=== PATIENT | female | born 1965 | race American Indian/Alaskan Native ===

== ENCOUNTER 2018-08-08 20:12 | Emergency (ER) | payer SELFPAY ==
[2018-08-08 20:25] VITALS: BP 189/94
--- NOTE | 2018-08-08 20:46 | Emergency Department Report ---
Blank Doc - Documentation Documentation: Rash under abd Hx/o MRSA was on abx. Rash has re-appeared for 3 days. No fev ers. This initial assessment diagnostic orders/clinical plan/treatment (s) is/Are subject change based on patient's health status, clinical progression and re- assessment by fellow clinical providers in the ED. Further treatment and work-up at subsequent clinical providers discretion. Patient/guardians urged not to elope from s their condition may be serious if not clinically assessed and managed. Inital order include:
--- NOTE | 2018-08-09 01:50 | Emergency Department Report ---
ED Female HPI - General Chief complaint: Urogenital-Female Stated complaint: VAGINAL RASH Time Seen by Provider: 08/08/18 20:43 Source: patient Mode of arrival: Ambulatory Limitations: No Limitations - History of Present Illness Initial comments: 53-year-old obese -[place] female with history of hypertension, diabetes a pruritic vaginal rash and recurrent MRSA pustules which were initially seen and evaluated [facility]. Just [facility] April 2019 and given an in May and treated with some oral Antivert, which did help the problem, but now is reemerges. She has not yet been able to follow-up with infectious disease. The rest has reemerge last 3-4 days. It is pruritic in nature involving the suprapubic region and her groin area. -: Gradual Location: labia, suprapubic Radiation: non-radiating Severity: mild Consistency: constant Improves with: none Worsens with: none Are you Now?: No - Related Data Previous Rx's Medication Instructions Recorded Last Taken Type Fluconazole [Diflucan] 150 mg PO DAILY #7 tablet 08/09/18 Unknown Rx Nystatin Cream [Mycostatin Cream] 1 applic TP BID #60 tube 08/09/18 Unknown Rx Allergies Allergy/AdvReac Type Severity Reaction Status Date / Time No Known Allergies Allergy Unverified 08/08/18 20:16 ED Review of Systems ROS: Stated complaint: VAGINAL RASH Other details as noted in HPI Constitutional: denies: chills, fever Eyes: denies: eye pain, eye discharge, vision change ENT: denies: ear pain, throat pain Respiratory: denies: cough, shortness of breath, wheezing Cardiovascular: denies: chest pain, palpitations Endocrine: no symptoms reported Gastrointestinal: denies: abdominal pain, nausea, diarrhea Genitourinary: denies: urgency, dysuria, discharge Musculoskeletal: denies: back pain, joint swelling, arthralgia Skin: rash. denies: lesions Neurological: denies: headache, weakness, paresthesias Psychiatric: denies: anxiety, depression Hematological/Lymphatic: denies: easy bleeding, easy bruising ED Past Medical Hx - Past Medical History Hx Hypertension: Yes Hx Diabetes: Yes - Surgical History Additional Surgical History: Breast Reduction, Hysterectomy - Social History Smoking Status: Never Smoker Substance Use Type: None - Medications Home Medications: Home Medications Medication Instructions Recorded Confirmed Last Taken Type Fluconazole [Diflucan] 150 mg PO DAILY #7 tablet 08/09/18 Unknown Rx Nystatin Cream [Mycostatin Cream] 1 applic TP BID #60 tube 08/09/18 Unknown Rx ED Physical Exam - General Limitations: No Limitations General appearance: alert, in no apparent distress - Head Head exam: Present: atraumatic, normocephalic - Eye Eye exam: Present: normal appearance, PERRL, EOMI Pupils: Present: normal accommodation - ENT ENT exam: Present: normal exam, normal orophraynx, mucous membranes moist, TM's normal bilaterally, normal external ear exam - Neck Neck exam: Present: normal inspection, full ROM - Respiratory Respiratory exam: Present: normal lung sounds bilaterally. Absent: respiratory distress, wheezes, rales, chest wall tenderness, decreased breath sounds - Cardiovascular Cardiovascular Exam: Present: regular rate, normal rhythm. Absent: systolic murmur, diastolic murmur, rubs, gallop - GI/Abdominal GI/Abdominal exam: Present: soft, normal bowel sounds - External exam: Present: erythema, other (excoriated vaginal rash to the suprapubic region just in the lower abdominal suprapubic skinfold, and the inguinal regions: Down to her labium majora. A nurse recruiting and selection consultant: Howard Was present during examination) - Extremities Exam Extremities exam: Present: normal inspection, full ROM, normal capillary refill - Back Exam Back exam: Present: normal inspection, full ROM. Absent: CVA tenderness (R), CVA tenderness (L), muscle spasm - Neurological Exam Neurological exam: Present: alert, oriented X3, CN II-XII intact, normal gait - Psychiatric Psychiatric exam: Present: normal affect, normal mood - Skin Skin exam: Present: warm, dry, intact, normal color. Absent: rash ED Course Vital Signs 08/08/18 20:22 Temperature 98.5 F Pulse Rate 94 H Respiratory 18 Rate Blood Pressure 189/94 [Left] O2 Sat by Pulse 98 Oximetry Critical care attestation.: If time is entered above; I have spent that time in minutes in the direct care of this critically ill patient, excluding procedure time. ED Disposition Clinical Impression: [facility] rash of groin Disposition: DC-01 TO HOME OR SELFCARE Is pt being admited?: No Does the pt Need Aspirin: No Condition: Stable Instructions: Acute Rash (ED) Additional Instructions: Be sure to use nystatin cream for at least 2 weeks before being reevaluated this may take up to 6 weeks for to clear Referrals: SANDRA SMITH MD [Primary Care Provider] - 3-5 Days
[2018-08-09] MEDS ORDERED: NORCO 5/325 PO ONE (02:14)
[2018-08-09] MEDS ORDERED: NORCO 5/325 ONE (02:15)
== END 2018-08-09 02:27 | disposition home or self-care (01) ==
LOC: ED 20:12
DX: B37.3 Candidiasis of vulva and vagina (principal); I10 Essential (primary) hypertension; E11.9 Type 2 diabetes mellitus without complications; Z90.710 Acquired absence of both cervix and uterus
CPT/HCPCS: 99282